=== PATIENT | female | born 1950 | race American Indian/Alaskan Native ===

== ENCOUNTER 2018-04-23 05:24 | Emergency (ER) | payer OTHER, SELFPAY ==
[2018-04-23 05:33] VITALS: BP 199/97; PULSE 91; RESP 18; TEMP 36.2; O2SAT 99; BMI 26.4
--- NOTE | 2018-04-23 05:38 | ED.GENADULT ---
HPI - General Adult General Chief complaint: Upper Respiratory Symptoms Stated complaint: throat sore can't swallow Time Seen by Provider: 04/23/18 05:27 Source: patient Mode of arrival: ambulatory Limitations: no limitations History of Present Illness HPI narrative: 68-year-old female comes to the emergency with complaint of sore throat. Patient states it woke her up this evening around midnight. Patient states she took some Aleve but has not been helpful. It is on the right side of her throat. Patient states it feels swollen but just on the right side. She has not had fevers. She has pain with swallowing but has been swallowing her secretions. Patient states her voice seems a little bit weaker. She is not having any difficulty breathing or cough. She has not had any sick contacts. She has similar symptoms once before but she states that was not treated. She has not had any dental issues that she is aware of. She denies chest pain or shortness of breath no nausea, no vomiting, no new GI or urinary symptoms. She takes losartan as well as atorvastatin. She has had a cholecystectomy. Denies tob. Related Data Home Medications Medication Instructions Recorded Confirmed cholecalciferol (vitamin D3) 2,000 iu PO QDAY #0 06/14/17 [Vitamin D3] multivitamin [Multiple Vitamins] 1 tab PO QDAY #0 06/14/17 Previous Rx's Medication Instructions Recorded aspirin 81 mg PO [facility] #30 06/16/17 atorvastatin [Lipitor] 20 mg PO HS #30 06/16/17 losartan 50 mg PO QDAY #30 tab 06/16/17 amoxicillin 500 mg PO TID #30 cap 04/23/18 prednisone 40 mg PO DAILY 3 Days tab 04/23/18 Allergies Allergy/AdvReac Type Severity Reaction Status Date / Time CATS Allergy Unknown Uncoded 09/13/17 11:50 Review of Systems Review of Systems All systems reviewed & are unremarkable except as noted in HPI and below Constitutional Denies chills, Denies fever(s) and Denies headache(s) Eyes Denies change in vision ENT Ears, Nose, Mouth, and Throat: Reports dental pain, Denies dysphagia, Denies ear discharge, Reports otalgia, Denies headache(s), Reports hoarseness, Denies lip swelling, Denies nasal congestion, Denies nasal discharge, Denies neck pain, Denies nose pain, Denies post nasal drip, Denies sinus pressure, Reports sore throat, Reports throat swelling (right side) and Denies tongue swelling Cardiovascular Denies chest pain and Denies dyspnea Respiratory Denies dyspnea Gastrointestinal Gastrointestinal: Denies abdominal pain, Denies dysphagia, Denies diarrhea, Denies nausea and Denies vomiting Genitourinary Denies urinary frequency Musculoskeletal Denies neck pain Integumentary/Breasts Denies rash Neurologic Denies headache(s) Allergic/Immunologic Denies lip swelling, Reports throat swelling (right side) and Denies tongue swelling PFSH Medical History Dyslipidemia (Acute) Hypertension (Acute) Surgical History Hx of cholecystectomy (Acute) Exam Narrative Exam Narrative: GEN: thin elderly female, alert and oriented x 3, patient appears to be in mild distress. HEENT: Atraumatic, pupils are equal round reactive to light, extraocular movements are intact, nares are clear, TMs are clear with no fluid, there is no conjunctival pallor. Throat is clear without any exudates, + erythema, no tonsillar enlargement or uvular deviation, no swelling or peritonsillar abscess, patient has right cervical lymphadneopathy, movable, tender, non-fluctuent. Full ROM of neck. HEART: Regular rate and rhythm without murmur, clicks, rubs. LUNGS:Lungs clear to auscultation, no wheezes, rales, crackles, chest moves symmetrically ABD:bowel sounds normal, soft, non-tender, no guarding, rebound, rigidity, no masses noted, no hepatosplenomegaly MSCL: Non-tender, full range of motion, normal gait NEURO:CN 2-12 intact, sensation normal Initial Vital Signs Initial Vital Signs: Vital Signs Temperature 97.2 F L 04/23/18 05:33 Pulse Rate 91 H 04/23/18 05:33 Respiratory Rate 18 04/23/18 05:33 Blood Pressure 199/97 H 04/23/18 05:33 Pulse Oximetry 99 04/23/18 05:33 Course Orders Ordered: Discontinued Medications Acetaminophen (Tylenol) 650 mg PO NOW ONE Stop: 04/23/18 06:42 Last Admin: 04/23/18 07:03 Dose: 650 mg Amoxicillin (Trimox) 500 mg PO NOW ONE Stop: 04/23/18 06:56 Last Admin: 04/23/18 07:03 Dose: 500 mg Dexamethasone (Decadron) 10 mg IV NOW ONE Stop: 04/23/18 05:36 Last Admin: 04/23/18 06:16 Dose: 10 mg Sodium Chloride (Normal Saline 0.9%) 1,000 mls @ 1,000 mls/hr IV BOLUS ONE Stop: 04/23/18 06:34 Last Infusion: 04/23/18 07:37 Dose: 0 mls/hr Admin: 04/23/18 06:16 Dose: 1,000 mls/hr Ketorolac Tromethamine (Toradol) 15 mg IV NOW ONE Stop: 04/23/18 06:15 Last Admin: 04/23/18 06:16 Dose: 15 mg Vital Signs - 8 hr 04/23/18 05:33 Temperature 97.2 F L Pulse Rate 91 H Respiratory Rate 18 Blood Pressure 199/97 H Pulse Oximetry 99 Medical Decision Making Lab Data Result diagrams: 04/23/18 06:00 04/23/18 06:00 Lab Results 04/23/18 04/23/18 04/23/18 Range/Units 05:56 06:00 06:00 WBC 11.7 H (4.5-11.0) X10^3/uL RBC 4.73 (4.0-5.2) X10^6/uL Hgb 13.2 (12.0-16.0) g/dL Hct 39.8 (36-46) % MCV 84.1 (80-100) fL MCH 27.9 (26-34) PG MCHC 33.2 (30-36) % RDW 13.3 (11.6-14.8) % Plt Count 242 (150-400) X10^3/uL Neut % (Auto) 78.2 H (50-75) % Lymph % (Auto) 13.6 L (25-40) % Mckinley % (Auto) 4.9 (3-14) % Eos % (Auto) 2.8 (2-4) % Baso % (Auto) 0.5 (0-2) % Neut # (Auto) 9200 H (2758-6726) /uL Sodium 142 (137-145) mmol/L Potassium 3.5 (3.4-5.1) mmol/L Chloride 104 (98-107) mmol/L Carbon Dioxide 29 (22-32) mmol/L BUN 15 (7-17) mg/dL Creatinine 0.70 (0.52-1.04) mg/dL Estimated GFR > 60.0 (>60) mL/min BUN/Creatinine Ratio 21.4 (6-22) Glucose 101 (80-110) mg/dL Calcium 9.1 (8.4-10.2) mg/dL Group A Strep (PCR) Negative MDM Narrative Medical decision making narrative: Recheck after medication, patient is feeling better but still uncomfortable. Does not want narcotics will try tylenol. WBC slightly elevated, discussed treating with amoxicilin and steroids and recheck with pcp. Patient pain is more right neck although no peritonsillar abscess, no fullness or swelling of neck noted, full ROM, no fevers, no neurologic changes, discussed possibility of retropharyngeal abscess, vascular cause or other cause of neck/throat pain and imaging may be helpful but suspicion is lower. Patient prefers treatment at this time and return if worsening or new changes. Discharge Plan Departure Patient Disposition: Home Clinical Impression: Sore throat Discharge Date/Time: 04/23/18 07:37 Interventions: ED Discharge Assessment Last Done: 04/23/18 07:35 Instructions: Sore Throat Activity Restrictions/Additional Instructions: Follow up with your primary care physician in 2-3 days if symptoms are not resolving. Return to ER for fevers greater than 100.4F, increasing pain, swelling, voice changes, increasing swelling of throat, unable to swallow secretions or saliva/spit, stridor or audible high pitched wheezing, passing out, severe headaches, new weakness, numbness, vision or speech changes. Take antibiotics as prescribed. Take prednisone until gone. Take tylenol 1000mg every 8 hours as needed for pain. You may also take ibuprofen 600mg every 6 hours for pain. Prescriptions: New amoxicillin 500 mg capsule 500 mg PO TID Qty: 30 RF: 0 prednisone 20 mg tablet 40 mg PO DAILY 3 Days RF: 0 No Action multivitamin [Multiple Vitamins] 1 EACH tablet 1 tab PO QDAY Qty: 0 RF: 0 cholecalciferol (vitamin D3) [Vitamin D3] 2,000 UNIT capsule 2,000 iu PO QDAY Qty: 0 RF: 0 atorvastatin [Lipitor] 20 MG tablet 20 mg PO HS Qty: 30 RF: 0 aspirin 81 MG tablet,delayed release (DR/EC) 81 mg PO [facility] Qty: 30 RF: 0 losartan 50 MG tablet 50 mg PO QDAY Qty: 30 RF: 0
[2018-04-23] MEDS: KETOROLAC 60 MG/2 ML VIAL 15 MG IV (06:16)
[2018-04-23] MEDS: SODIUM CHLORIDE 0.9% 1,000 ML 1000 ML IV (06:16)
[2018-04-23] MEDS: DEXAMETHASONE 10 MG/ML VIAL IV (06:16)
[2018-04-23 06:18] LABS: Add Manual Diff / Slide Review NO; Basophils Percent Auto 0.5 % (0-2); Eosinophils Percent Auto 2.8 % (2-4); Hematocrit 39.8 % (36-46); Hemoglobin 13.2 g/dL (12.0-16.0); Lymphocytes Percent Auto 13.6 % (25-40); Mean Corpuscular HGB Conc 33.2 % (30-36); Mean Corpuscular Hemoglobin 27.9 PG (26-34); Mean Corpuscular Volume 84.1 fL (80-100); Monocytes Percent Auto 4.9 % (3-14); Neutrophils Absolute Auto 9200 /uL (3000-5900); Neutrophils Percent Auto 78.2 % (50-75); Platelet Count 242 X10^3/uL (150-400); Red Blood Cell Count 4.73 X10^6/uL (4.0-5.2); Red Cell Distribution Width 13.3 % (11.6-14.8); White Blood Cell Count 11.7 X10^3/uL (4.5-11.0)
[2018-04-23 06:33] LABS: Strep Grp A by PCR Rapid Negative
[2018-04-23 06:49] LABS: BUN Creatinine Ratio 21.4 (6-22); Blood Urea Nitrogen 15 mg/dL (7-17); Calcium 9.1 mg/dL (8.4-10.2); Carbon Dioxide 29 mmol/L (22-32); Chloride 104 mmol/L (98-107); Estimated Glomerular Filt Rate > 60.0 mL/min (>60); Glucose 101 mg/dL (80-110); HEMOLYSIS < 15 (0-50); Potassium 3.5 mmol/L (3.4-5.1); Sodium 142 mmol/L (137-145)
[2018-04-23 07:00] VITALS: BP 168/67; PULSE 72; RESP 16; O2SAT 99
[2018-04-23] MEDS: AMOXICILLIN 250 MG CAPSULE 500 MG PO (07:03)
[2018-04-23] MEDS: ACETAMINOPHEN 325 MG TABLET 650 MG PO (07:03)
--- NOTE | 2018-04-23 07:16 | PC.NURSE ---
pt coughed after taking tylenol, said she has trouble swallowing after her stroke in June, sat her up and gave her some applesauce. she was able to swallow the abx with it poured into applesauce.
== END 2018-04-23 07:37 | disposition home or self-care (01) ==
PROVIDERS: Emergency Provider Emergency Medicine; Family Provider Family Medicine; PCP Family Medicine
DX: J02.9 Acute pharyngitis, unspecified (principal)
CPT/HCPCS: 36591; 80048; 85025; 87651; 96361; 96374; 96375; 99283; 99284; J1100; J1885

== ENCOUNTER → 2018-05-18 09:01 | Outpatient (CLI) | payer OTHER, SELFPAY ==
--- NOTE | 2018-05-18 | DI.US.S_ITS ---
PROCEDURE: US RENAL COMPLETE INDICATIONS: RESISTANT HYPERTENSION TECHNIQUE: Real-time scanning was performed of the kidneys and bladder, with image documentation. COMPARISON: None. FINDINGS: Kidneys: Kidneys are normal in size. Right kidney measures 10 cm long; left kidney measures 9.6 cm long. Right renal cortical thickness is 1.0 cm; left renal cortical thickness is 1.1 cm. Renal cortical echotexture is normal. No hydronephrosis or nephrolithiasis. No suspicious solid mass lesions. Bladder: Pre-void bladder volume is 29 mL. Post-void residual is not assessed. Pre-void images demonstrate no intraluminal masses or stones. On pre-void images, neither ureteral jets are noted with color Doppler interrogation. (Of note, ureteral jets may not be detectable in up to 25% of cases due to insufficient differences in specific gravity between ureteral and bladder urine). Miscellaneous: No free pelvic fluid. Right posterior liver cyst. IMPRESSION: 1. Normal kidneys. 2. Incidental finding of 4.5 cm posterior right hepatic lobe cyst. Dictated by: Jorden Freire [facility] Interpreted: Alexander Mancera MD on 05/18/2018 at 10:38 Approved by: Alexander Mancera M.D. on 05/18/2018 at 11:08
== END ==
PROVIDERS: Family Provider Family Medicine; PCP Family Medicine; Visit Provider Physician Assistant
DX: I10 Essential (primary) hypertension (principal); K76.89 Other specified diseases of liver
CPT/HCPCS: 76770

== ENCOUNTER → 2018-07-20 13:13 | Outpatient (CLI) | payer OTHER, SELFPAY ==
--- NOTE | 2018-07-20 | DI.MG.S_ITS ---
BILATERAL DIGITAL SCREENING MAMMOGRAM 3D/2D WITH CAD: 07/20/2018 CLINICAL: Routine screening. Family history of breast cancer. Comparison is made to exams dated: 06/07/2016 mammogram, 12/03/2015 mammogram, and 11/06/2014 mammogram - [facility]. There are scattered fibroglandular elements in both breasts. Current study was also evaluated with a Computer Aided Detection (CAD) system. There is an oval low density asymmetry with an obscured, indistinct, and circumscribed margin in the right breast at 10 o'clock anterior depth. There is 0.6 cm oval equal density asymmetry with an obscured and circumscribed margin in the left breast middle depth lateral region seen on the craniocaudal view only. No other significant masses or calcifications are seen in either breast. IMPRESSION: INCOMPLETE: NEEDS ADDITIONAL IMAGING EVALUATION The oval low density asymmetry in the right breast at 10 o'clock anterior depth is indeterminate. Mediolateral and spot compression views as well as additional views with possible ultrasound are recommended. The 0.6 cm oval equal density asymmetry in the left breast middle depth lateral region seen on the craniocaudal view only is indeterminate. Mediolateral and spot compression views as well as additional views with possible ultrasound are recommended. This exam was interpreted at Station ID: [id number]. NOTE: For mammograms, a report in lay terms will be sent to the patient. Approximately 15% of breast malignancies will not be visualized mammographically. In the management of a palpable breast mass, a negative mammogram must not discourage biopsy of a clinically suspicious lesion. Electronically Signed By: Ilya marquez/ranjit:07/20/2018 14:26:21 letter sent: Additional Imaging Needed ACR BI-RADS Category 0: Incomplete 3340F
== END ==
PROVIDERS: PCP Family Medicine; Visit Provider Family Medicine
DX: Z12.31 Encounter for screening mammogram for malignant neoplasm of breast (principal); Z80.3 Family history of malignant neoplasm of breast
CPT/HCPCS: 77063; 77067

== ENCOUNTER → 2018-08-03 08:44 | Outpatient (CLI) | payer OTHER, SELFPAY ==
--- NOTE | 2018-08-03 | DI.US.S_ITS ---
ULTRASOUND OF LEFT BREAST: 08/03/2018 CLINICAL: Patient returns today to evaluate an architectural distortion in the left breast. Comparison is made to exams dated: 08/03/2018 mammogram, 07/20/2018 mammogram, 06/07/2016 ultrasound, and 06/07/2016 mammogram - [facility]. Real-time ultrasound of the left breast was performed on the areas of interest. Madden scale images of the real-time examination were reviewed. IMPRESSION: NEGATIVE There is no sonographic evidence of malignancy. There is no sonographic abnormality seen in the left breast to correspond with the questionable architectural distortion in the lower outer quadrant. This region likely represents normal fibroglandular tissue and has a similar appearance when compared with the patient's previous 2D mammogram exams. Return to annual mammogram screening schedule is recommended. This exam was interpreted at Station ID: [id number]. Electronically Signed By: Carline García M.D. lk/:08/03/2018 10:05:31 letter sent: Normal Exam Ultrasound BI-RADS: 1 Negative
--- NOTE | 2018-08-03 | DI.MG.S_ITS ---
BILATERAL DIGITAL DIAGNOSTIC MAMMOGRAM 3D/2D WITH ADDITIONAL VIEWS: 08/03/2018 Comparison is made to exams dated: 07/20/2018 mammogram, 06/07/2016 mammogram, and 12/03/2015 mammogram - [facility]. There are scattered fibroglandular elements in both breasts. The low density asymmetry in the right breast at 10 o'clock anterior depth is not seen in additional views. The asymmetry in the left breast middle depth lateral region seen on the craniocaudal view only is no longer seen. However, there is possible architectural distortion in the lower outer quadrant seen on additional views. No other significant masses or calcifications are seen in either breast. IMPRESSION: INCOMPLETE: NEEDS ADDITIONAL IMAGING EVALUATION A targeted ultrasound of the left breast is recommended to evaluate for possible architectual distortion and will be performed immediately following this exam. This exam was interpreted at Station ID: [id number]. NOTE: For mammograms, a report in lay terms will be sent to the patient. Approximately 15% of breast malignancies will not be visualized mammographically. In the management of a palpable breast mass, a negative mammogram must not discourage biopsy of a clinically suspicious lesion. Electronically Signed By: Carline García M.D. lk/:08/03/2018 10:01:28 ACR BI-RADS Category 0: Incomplete 3340F
== END ==
PROVIDERS: PCP Family Medicine; Visit Provider Family Medicine
DX: R92.8 Other abnormal and inconclusive findings on diagnostic imaging of breast (principal); N64.89 Other specified disorders of breast
CPT/HCPCS: 76642; 77066; G0279

== ENCOUNTER 2018-11-30 11:58 | Day surgery (SDC) | payer OTHER, SELFPAY ==
[2018-11-30] VITALS (8 sets, daily range): BP systolic 88–144; BP diastolic 53–72; PULSE 75–85; RESP 15–18; TEMP 36–36.6; O2SAT 96–98; BMI 25.4
--- NOTE | 2018-11-30 | PATH_ITS ---
[facility] Accession Number: [id number] . 01 Material submitted: . cecum - CECAL POLYPS . 02 Diagnosis: Cecum, Polyps, Biopsies: Tubular adenoma in three of four fragments. V/12/03/2018 . 02 Electronically signed: . Susana Boykin MD, Pathologist NPI- [id number] . 01 Gross description: . CECAL POLYPS: Received in formalin are 4 fragment(s) of guerrero, soft tissue measuring 0.2 x 0.1 x 0.1 cm to 0.4 x 0.3 x 0.2 cm which is entirely submitted and submitted entirely in 1 cassette(s) /DMC /DMC . 02 Pathologist provided ICD-10: D12.0 . 02 CPT . 371924 Performed at: 01 [facility] [address] [id number] MD Ilya Lr MD Phone: [phone] Performed at: 02 [facility] [place] [address] [address] [place], [place] [id number] MD Susana Boykin MD Phone: [phone]
[2018-11-30] MEDS: SODIUM CHLORIDE 0.9% 1,000 ML 200 ML IV (12:41)
--- NOTE | 2018-11-30 13:10 | PM.HP.1 ---
History of Present Illness Date Patient Seen: 11/30/18 Time Patient Seen: 13:10 Chief complaint: [id number] Narrative: Patient is here for screening colonoscopy most recent colonoscopy 11 years ago she is asymptomatic Patient History Medical History Dyslipidemia (Acute) Hypertension (Acute) Surgical History Hx of cholecystectomy (Acute) Social History household members: spouse Family & Social History Social History: household members spouse Meds Home Medications Medication Instructions Recorded Confirmed Type cholecalciferol (vitamin D3) 2,000 iu PO QDAY #0 06/14/17 11/30/18 History [Vitamin D3] multivitamin [Multiple Vitamins] 1 tab PO QDAY #0 06/14/17 11/30/18 History aspirin 81 mg PO [facility] #30 06/16/17 11/30/18 Rx atorvastatin [Lipitor] 20 mg PO HS #30 06/16/17 11/30/18 Rx losartan 50 mg PO QDAY #30 tab 06/16/17 11/30/18 Rx amlodipine 2.5 mg PO DAILY 11/30/18 11/30/18 History fexofenadine [Sharri Allergy] 60 mg PO BID 11/30/18 11/30/18 History hydrochlorothiazide 25 mg PO DAILY 11/30/18 11/30/18 History metoprolol tartrate 25 mg PO DAILY 11/30/18 11/30/18 History Allergies Allergy/AdvReac Type Severity Reaction Status Date / Time CATS Allergy Unknown Uncoded 11/30/18 12:31 Review of Systems Review of Systems All systems reviewed & are unremarkable except as noted in HPI and below Exam Vital Signs (past 8 hours): - 11/30/18 12:22 Temperature 97.3 F L Pulse Rate 77 Respiratory Rate 16 Blood Pressure 144/72 H Pulse Oximetry 96 Oxygen Delivery Method Room Air Narrative Exam Narrative: Patient is alert and oriented with no complaints Lungs are clear with no rales or wheezes Heart regular rhythm no murmur Abdomen soft organomegaly Rectal will be done at time of colonoscopy Assessment & Plan Assessment & Plan narrative: Patient is here for screening colonoscopy asymptomatic has no questions
[2018-11-30] MEDS: fentaNYL 250 MCG/5 ML INJ IV (13:20)
[2018-11-30] MEDS: MIDAZOLAM 5 MG/5 ML VIAL IV (13:21)
--- NOTE | 2018-11-30 13:52 | PM.OP.ENDO ---
Operative Date/Time/Diagnoses Date of procedure: 11/30/18 Time of procedure: 13:52 Pre-op diagnosis: Screening colonoscopy Post-op diagnosis: other (Polyp found in the cecum sessile and removed with cold forceps) Procedure & Clinicians Study performed: Colonoscopy and polypectomy of cecal polyp Same procedure as scheduled: Yes Indications: Screening Surgeon: Warren Hardy Procedure Notes SCOAP/Timeout: Was done Procedure in detail: Procedure the patient was properly identified during surgical pause given a total of 3 mg of Versed and 100 micro g of fentanyl throughout the procedure which was well-tolerated the flexible fiberoptic colonoscope inserted transanally to the cecum in the cecum there was a 1 cm lobulated sessile polyp which I removed with the cold forceps and sent for permanent histology. Patient also was found to have severe sigmoid diverticulosis. I saw what could have been a small [address] in with the scope but I could not identified on the way back out. This appeared to be around 20 cm in the sigmoid but once again I could not identify it with multiple attempts at advancing the scope at that segment and slowly with drawing I could not find that suspicious area. Procedures very well tolerated. Scope withdrawal time: 20 Sedation minutes: 32 Findings: polyp Specimen(s): other (Cecal polyp was sent) Complications: none Impression: 1 cm lobulated polyp in the cecum. Recommendations: Colonscopy in 3 years Disposition: PACU
--- NOTE | 2018-11-30 15:16 | SUR.PHASEII ---
Patient's family has been called multiple times and no one has come to get her. Now her has arrived.
== END 2018-11-30 15:15 | disposition home or self-care (01) ==
PROVIDERS: PCP Physician Assistant; Visit Provider Surgery
PROC: 0DJD8ZZ Inspection of Lower Intestinal Tract, Via Natural or Artificial Opening Endoscopic (ICD-10-PCS; CPT 45378; principal; 2018-11-30 13:30)
DX: Z12.11 Encounter for screening for malignant neoplasm of colon (principal); D12.0 Benign neoplasm of cecum; K57.30 Diverticulosis of large intestine without perforation or abscess without bleeding; I10 Essential (primary) hypertension; E78.5 Hyperlipidemia, unspecified
CPT/HCPCS: 45380; 99152; 99153; J2250; J3010

== ENCOUNTER → 2020-05-18 14:06 | Outpatient (CLI) | payer OTHER, SELFPAY ==
--- NOTE | 2020-05-18 | DI.RAD.S_ITS ---
PROCEDURE: XR ELBOW RT MIN 3V INDICATIONS: RIGHT ELBOW INJURY, PAIN TECHNIQUE: 3 views of the elbow were acquired. COMPARISON: None. FINDINGS: Bones: No fractures or dislocations. No suspicious bony lesions. Soft tissues: Marked soft tissue swelling about the olecranon. No definite joint effusion. IMPRESSION: Soft tissue swelling in the area of the olecranon. No fracture. If the patient's symptoms do not improve recommend followup radiographs in 10 days to assess for healing sclerosis/occult injury. Dictated by: Denver Choe M.D. on 05/18/2020 at 15:42 Approved by: Denver Choe M.D. on 05/18/2020 at 15:43
== END ==
PROVIDERS: PCP Physician Assistant; Referring Provider Physician Assistant; Visit Provider Physician Assistant
DX: M25.521 Pain in right elbow (principal); S59.901A Unspecified injury of right elbow, initial encounter; M79.89 Other specified soft tissue disorders; X58.XXXA Exposure to other specified factors, initial encounter
CPT/HCPCS: 73080

== ENCOUNTER → 2020-07-11 15:43 | Outpatient (CLI) | payer OTHER, SELFPAY ==
--- NOTE | 2020-07-11 | DI.MG.S_ITS ---
BILATERAL DIGITAL SCREENING MAMMOGRAM 3D/2D WITH CAD: 07/11/2020 CLINICAL: Routine screening. Family history of breast cancer. Comparison is made to exams dated: 07/20/2018 mammogram, 06/07/2016 mammogram, and 12/03/2015 mammogram - [facility]. There are scattered fibroglandular elements in both breasts. Current study was also evaluated with a Computer Aided Detection (CAD) system. No significant masses, calcifications, or other findings are seen in either breast. There has been no significant interval change. IMPRESSION: NEGATIVE There is no mammographic evidence of malignancy. A 1 year screening mammogram is recommended. This exam was interpreted at Station ID: [id number]. NOTE: For mammograms, a report in lay terms will be sent to the patient. Approximately 15% of breast malignancies will not be visualized mammographically. In the management of a palpable breast mass, a negative mammogram must not discourage biopsy of a clinically suspicious lesion. Electronically Signed By: Christian pérze/ranjit:07/13/2020 08:41:07 letter sent: Normal Exam ACR BI-RADS Category 1: Negative [id number]
== END ==
PROVIDERS: PCP Physician Assistant; Referring Provider Physician Assistant; Visit Provider Physician Assistant
DX: Z12.31 Encounter for screening mammogram for malignant neoplasm of breast (principal); Z80.3 Family history of malignant neoplasm of breast
CPT/HCPCS: 77063; 77067

== ENCOUNTER → 2022-02-02 11:06 | Outpatient (CLI) | payer OTHER, SELFPAY ==
[2022-02-02 13:24] LABS: COVID19 -Nasal RAPID Negative (Negative)
== END ==
PROVIDERS: PCP Physician Assistant; Visit Provider Surgery
DX: Z01.812 Encounter for preprocedural laboratory examination (principal); Z20.822 Contact with and (suspected) exposure to COVID-19
CPT/HCPCS: 87635; C9803

== ENCOUNTER 2022-02-03 10:57 | Day surgery (SDC) | payer OTHER, SELFPAY ==
--- NOTE | 2022-02-03 | PATH_ITS ---
[facility] Accession Number: [id number] . 01 Material submitted: . colon - SIGMOID COLON POLYP . 01 Clinical history: . SCREENING COLONOSCOPY . 01 Diagnosis: Sigmoid Colon, Polyp, Biopsy: Tubular adenoma. MRV 02/08/2022 1228 Local . 01 Electronically signed: . Susana Boykin MD, Pathologist NPI- [id number] . 01 Gross description: . SIGMOID COLON POLYP: Received in formalin is 1 fragment(s) of guerrero, soft tissue measuring 0.3 x 0.2 x 0.2 cm submitted entirely in 1 cassette(s) /CPE 02/04/2022 0833 Local . 01 Pathologist provided ICD-10: D12.5 . 01 CPT . 691188 Specimen Comment: A courtesy copy of this report has been sent to [phone] Performed at: 01 [facility] [address] [place] [address], [place], [place] [id number] MD Ilya Lr MD Phone: [phone]
[2022-02-03 11:12] VITALS: BP 155/90; PULSE 94; RESP 16; TEMP 36.2; O2SAT 95; BMI 27.3
[2022-02-03] MEDS: LACTATED RINGERS 1,000 ML 42 ML IV (11:27)
--- NOTE | 2022-02-03 13:19 | PM.HP.1 ---
History of Present Illness History of Present Illness Date Patient Seen: 02/03/22 Time Patient Seen: 13:19 Chief complaint: SCREENING COLONOSCOPY Narrative: Maria Alejandra is a 72-year-old woman here for colonoscopy. Her last 1 was in [address] Heladio marshall and 2 small polyps were removed from the cecum. She would another colonoscopy several years prior to that with no polyps. She has no known family history of colon cancer. Patient History Medical History (Updated 02/03/22 @ 13:20 by Juan Hawkins MD) Dyslipidemia Hypertension Surgical History Hx of cholecystectomy Family & Social History Social History: household members spouse Tobacco & Substance use: Smoking Status Never smoker alcohol intake never Substance Use Type does not use Meds Home Medications and Allergies Home Medications Medication Instructions Recorded Confirmed Type cholecalciferol (vitamin D3) 50 2,000 iu PO QDAY ##0 06/14/17 11/30/18 History mcg (2,000 unit) capsule (Vitamin D3) multivitamin (Multiple Vitamins 1 tab PO QDAY ##0 06/14/17 11/30/18 History tablet) aspirin 81 mg tablet,delayed 81 mg [place] [facility] [place]30 06/16/17 11/30/18 Rx release atorvastatin 20 mg tablet (Lipitor) 20 mg PO HS ##30 06/16/17 11/30/18 Rx losartan 50 mg tablet 50 mg PO QDAY #30 tabs 06/16/17 11/30/18 Rx amlodipine 2.5 mg tablet 2.5 mg PO DAILY 11/30/18 11/30/18 History fexofenadine 60 mg tablet (Sharri 60 mg PO BID 11/30/18 11/30/18 History Allergy) hydrochlorothiazide 25 mg tablet 25 mg PO DAILY 11/30/18 11/30/18 History metoprolol tartrate 25 mg tablet 25 mg PO DAILY 11/30/18 11/30/18 History sodium sul 1.479 gram-potas ch See Rx Instructions PO PER PKG DIR 01/19/22 Rx 0.188 gram-magnes sul 0.225 gram #24 tabs tablet (Sutab) Allergies Allergy/AdvReac Type Severity Reaction Status Date / Time CATS Allergy Unknown Uncoded 02/03/22 11:11 Exam Vital Signs (past 8 hours): - 02/03/22 11:12 Temperature 97.2 F L Pulse Rate 94 H Respiratory Rate 16 Blood Pressure 155/90 H Pulse Oximetry 95 Oxygen Delivery Method Room Air Oxygen Delivery Method Room Air Const General: No acute distress Resp Effort & Inspection: normal respiratory effort Assessment & Plan Assessment and plan (1) History of colon polyps: Status: Acute Plan 72-year-old woman with history of colon polyps with her last colonoscopy 4 years ago. We reviewed the risks and benefits of colonoscopy and she would like to proceed. Time Spent With Patient Critical Care time: I spent a total of [] minutes of critical care time on this patient's care today; this time is exclusive of procedural time.
[2022-02-03] MEDS: fentaNYL 100 MCG/2 ML INJ 125 MCG IV (13:37)
[2022-02-03] MEDS: MIDAZOLAM 5 MG/5 ML VIAL IV (13:37)
--- NOTE | 2022-02-03 13:53 | PM.OP.COLON ---
Operative Date/Time/Diagnoses Date of procedure: 02/03/22 Time of procedure: 13:54 Pre-op diagnosis: Colon cancer screening Post-op diagnosis: same Procedure & Clinicians Study performed: Colonoscopy Same procedure as scheduled: Yes Surgeon: Juan Hawkins Procedure Notes Procedure in detail: Surgeon: Juan Hawkins MD Procedure: The patient was brought to the endoscopy suite, placed in left lateral decubitus position. The patient was connected to monitoring devices. A time-out was performed. Sedation was administered. Once the patient was adequately sedated, a digital rectal exam was performed and was normal. The scope was then inserted and advanced to the cecum where the appendiceal orifice was identified and photographed. The scope was then slowly withdrawn over greater than 6 minutes. The mucosa was thoroughly inspected. There was a 4 mm polyp in the sigmoid colon removed with a cold snare. There were some scattered diverticula in the sigmoid colon. The scope was retroflexed in the rectum. There were some mild internal hemorrhoids but no other abnormalities were seen. The scope was straightened and removed. The patient was awakened and brought to recovery. Versed: 5 mg Fentanyl: 125 mcg EBL: 5 mL Findings: 5 mm sigmoid colon polyp and scattered sigmoid diverticulosis Scope withdrawal time: 11 Sedation minutes: 23 Post-procedure Disposition: PACU
[2022-02-03 13:56] VITALS: BP 106/62; PULSE 76; RESP 20; TEMP 36.6
[2022-02-03 14:01] VITALS: BP 114/69; PULSE 77; RESP 19; O2SAT 99
[2022-02-03 14:05] VITALS: BP 115/64; PULSE 76; RESP 18; TEMP 36.4; O2SAT 100
[2022-02-03 14:15] VITALS: BP 126/63; PULSE 77; RESP 16; TEMP 36.6; O2SAT 98
[2022-02-03 14:50] VITALS: BP 128/70; PULSE 76; RESP 16; TEMP 36.6; O2SAT 97
== END 2022-02-03 14:40 | disposition home or self-care (01) ==
PROVIDERS: PCP Physician Assistant; Referring Provider Surgery; Visit Provider Surgery
PROC: 0DJD8ZZ Inspection of Lower Intestinal Tract, Via Natural or Artificial Opening Endoscopic (ICD-10-PCS; CPT 45378; principal; 2022-02-03 12:15)
DX: Z12.11 Encounter for screening for malignant neoplasm of colon (principal); Z86.010 Personal history of colon polyps; K57.30 Diverticulosis of large intestine without perforation or abscess without bleeding; K64.8 Other hemorrhoids; I10 Essential (primary) hypertension; E78.5 Hyperlipidemia, unspecified; D12.5 Benign neoplasm of sigmoid colon
CPT/HCPCS: 45385; 99152; J2250; J3010

== ENCOUNTER 2022-07-19 19:34 | Observation (INO) | payer OTHER, SELFPAY ==
[2022-07-19] VITALS (12 sets, daily range): BP systolic 133–181; BP diastolic 62–82; PULSE 94–104; RESP 14–25; TEMP 36.9–37.2; O2SAT 93–98; BMI 29.0
--- NOTE | 2022-07-19 19:45 | DI.RAD.S_ITS ---
PROCEDURE: XR CHEST 1V INDICATIONS: chest pain TECHNIQUE: One view of the chest was acquired. COMPARISON: None. FINDINGS: Surgical changes and devices: None. Lungs and pleura: Low lung volumes left basilar horizontal opacity. Lungs are otherwise clear. No pleural effusions or pneumothorax. Mediastinum: Mediastinal contours appear normal. Heart size is normal. Bones and chest wall: No suspicious bony lesions. Overlying soft tissues appear unremarkable. IMPRESSION: 1. Low lung volumes and probable left base atelectasis. 2. No other acute cardiopulmonary disease. Dictated by: Anabell Garcia M.D. on 07/19/2022 at 20:08 Approved by: Anabell Garcia M.D. on 07/19/2022 at 20:09
[2022-07-19 19:50] LABS: Add Manual Diff / Slide Review NO; Basophils Absolute Auto 0 /uL (0-100); Basophils Percent Auto 0.4 % (0-2); Eosinophils Absolute Auto 200 /uL (0-450); Eosinophils Percent Auto 1.9 % (2-4); Hematocrit 36.4 % (36-46); Hemoglobin 12.5 g/dL (12.0-16.0); Lymphocytes Absolute Auto 1900 /uL (1100-4500); Lymphocytes Percent Auto 18.6 % (25-40); Mean Corpuscular HGB Conc 34.2 % (30-36); Mean Corpuscular Volume 78.9 fL (80-100); Monocytes Absolute Auto 700 /uL (0-900); Monocytes Percent Auto 7.2 % (3-14); Neutrophils Absolute Auto 7400 /uL (1500-7000); Neutrophils Percent Auto 71.9 % (50-75); Platelet Count 220 X10^3/uL (150-400); Red Blood Cell Count 4.62 X10^6/uL (4.0-5.2); White Blood Cell Count 10.3 X10^3/uL (4.5-11.0)
--- NOTE | 2022-07-19 19:55 | ED.CHESTPAIN ---
HPI - Chest Pain General Chief Complaint: Chest Pain Stated Complaint: L chest pain Time Seen by Provider: 07/19/22 19:45 Source: patient and EMS Mode of arrival: EMS Limitations: no limitations History of Present Illness HPI narrative: 72-year-old female. Has a history high blood pressure. Has also has a history of a stroke with some mobility issues and also some ?communication ?issues who is here for evaluation of left-sided chest discomfort that radiated down her left arm. States that it started earlier this evening. She was getting ready for bed when the symptoms started. She did have some shortness of breath with it. She has not had symptoms like this in the past. She contacted her family who came over to the house and then contacted 911. She did receive aspirin and nitro prior to arrival. She states the nitro caused her symptoms to completely resolve. She is currently asymptomatic. She did not have any sweating at the time. No lower extremity edema. No abdominal pain. Related Data Home Medications Medication Instructions Recorded Confirmed cholecalciferol (vitamin D3) 50 2,000 iu PO QDAY ##0 06/14/17 11/30/18 mcg (2,000 unit) capsule (Vitamin D3) multivitamin (Multiple Vitamins 1 tab PO QDAY ##0 06/14/17 11/30/18 tablet) amlodipine 2.5 mg tablet 2.5 mg PO DAILY 11/30/18 11/30/18 fexofenadine 60 mg tablet (Sharri 60 mg PO BID 11/30/18 11/30/18 Allergy) hydrochlorothiazide 25 mg tablet 25 mg PO DAILY 11/30/18 11/30/18 metoprolol tartrate 25 mg tablet 25 mg PO DAILY 11/30/18 11/30/18 losartan 100 mg tablet 100 mg PO BEDTIME 07/19/22 07/19/22 Previous Rx's Medication Instructions Recorded aspirin 81 mg tablet,delayed 81 mg PO [facility] ##30 06/16/17 release atorvastatin 20 mg tablet (Lipitor) 20 mg PO ##30 06/16/17 losartan 50 mg tablet 50 mg PO QDAY #30 tabs 06/16/17 Allergies Allergy/AdvReac Type Severity Reaction Status Date / Time cat dander Allergy Unknown Verified 07/19/22 19:43 Review of Systems Constitutional Constitutional: Reports system reviewed and no additional complaints, except as documented Cardiovascular Cardiovascular: Reports system reviewed and no additional complaints, except as documented Respiratory Respiratory: Reports system reviewed and no additional complaints, except as documented Gastrointestinal Gastrointestinal: Reports system reviewed and no additional complaints, except as documented Integumentary/Breasts Skin/Breast: Reports system reviewed and no additional complaints, except as documented Neurologic Neurologic: Reports system reviewed and no additional complaints, except as documented Hematologic/Lymphatic On Anticoagulants: No Patient History Medical History Dyslipidemia Hypertension Surgical History Hx of cholecystectomy Social History household members: spouse Smoking Status: Never smoker alcohol intake: never Smoking Status: Never smoker alcohol intake frequency: other Substance Use Type: does not use Exam Initial Vital Signs Initial Vital Signs: Vital Signs Pulse Rate 104 H 07/19/22 19:37 Blood Pressure 177/81 H 07/19/22 19:37 Pulse Oximetry 94 07/19/22 19:37 HENMT Head: normal to inspection and normocephalic Resp Effort & Inspection: normal respiratory effort Auscultation: clear to auscultation bilaterally Cardio Rate: regular rate Rhythm: regular rhythm GI Inspection: normal to inspection Palpation: soft and No tender Skin General: no rashes or lesions noted Neuro General: patient alert, patient awake and moves all extremities Extrem General: normal to inspection and capillary refill normal Psych Appearance: grossly normal and well kempt Scores HEART Score Heart Score history: Moderately Suspicious Heart Score EKG: Normal Heart Score Age: > or = 65 years old Heart Score risk factors: 1-2 risk factors Heart Score troponin: < or = to normal limit Heart Score Total: 4 Course Orders Ordered: ED Orders 07/19/22 19:30 Complete Blood Count AUTO DIFF Stat Comprehensive Metabolic Panel Stat Lipase Stat Magnesium Stat Partial Thromboplastin Time Stat Prothrombin Time INR Stat Troponin & CK Cardiac Panel Stat 07/19/22 19:45 XR chest 1V Stat EKG-12 Lead Stat 07/19/22 20:20 Covid-19 + FLU A/B + RSV - PCR Stat Urine Culture Stat Urine Microscopic Stat 07/19/22 20:36 Troponin & CK Cardiac Panel Stat 07/19/22 21:34 stress [NM jennifer perf SPECT rest & str] Urgent 07/20/22 05:00 Troponin I Routine Vital Signs Vital signs: Vital Signs - 8 hr 07/19/22 19:38 07/19/22 19:37 07/19/22 19:37 Temperature 98.9 F Pulse Rate 95 H 104 H Respiratory Rate 14 Blood Pressure 177/81 H 177/81 H Pulse Oximetry 95 94 Oxygen Delivery Method Room Air 07/19/22 20:00 07/19/22 20:01 07/19/22 20:01 Temperature Pulse Rate 95 H 95 H Respiratory Rate Blood Pressure 181/79 H Pulse Oximetry 97 96 Oxygen Delivery Method 07/19/22 20:25 07/19/22 20:25 07/19/22 20:30 Temperature Pulse Rate 103 H Respiratory Rate 25 H Blood Pressure 164/82 H 140/65 Pulse Oximetry 98 Oxygen Delivery Method 07/19/22 20:30 07/19/22 20:45 07/19/22 20:45 Temperature Pulse Rate 97 H 97 H Respiratory Rate 23 Blood Pressure 140/65 Pulse Oximetry 97 97 Oxygen Delivery Method 07/19/22 21:00 07/19/22 21:00 07/19/22 21:15 Temperature Pulse Rate 97 H Respiratory Rate Blood Pressure 138/64 148/68 H Pulse Oximetry 96 Oxygen Delivery Method 07/19/22 21:15 07/19/22 21:30 07/19/22 21:30 Temperature Pulse Rate 99 H 95 H Respiratory Rate 23 24 Blood Pressure 139/65 Pulse Oximetry 96 96 Oxygen Delivery Method MDM - Chest Pain Lab Data Attestation: I reviewed the patient's lab results. 07/19/22 19:30 07/19/22 19:30 Labs: Lab Results 07/19/22 07/19/22 07/19/22 Range/Units 19:30 19:30 19:30 WBC 10.3 (4.5-11.0) X10^3/uL RBC 4.62 (4.0-5.2) X10^6/uL Hgb 12.5 (12.0-16.0) g/dL Hct 36.4 (36-46) % MCV 78.9 L (80-100) fL MCH 27.0 (26-34) PG MCHC 34.2 (30-36) % RDW 14.0 (11.6-14.8) % Plt Count 220 (150-400) X10^3/uL Neut % (Auto) 71.9 (50-75) % Lymph % (Auto) 18.6 L (25-40) % [place] % (Auto) 7.2 (3-14) % Eos % (Auto) 1.9 L (2-4) % Baso % (Auto) 0.4 (0-2) % Neut # (Auto) 7400 H (5727-6500) /uL Lymph # (Auto) 1900 (0020-7218) /uL [place] # (Auto) 700 (0-900) /uL Eos # (Auto) 200 (0-450) /uL Baso # (Auto) 0 (0-100) /uL PT 13.0 H (10.1-12.7) SECONDS INR 1.1 (0.9-1.3) APTT 33 (26-36) SECONDS Sodium 140 (137-145) mmol/L Potassium 3.3 L (3.4-5.1) mmol/L Chloride 105 (98-107) mmol/L Carbon Dioxide 24 (22-32) mmol/L BUN 15 (7-17) mg/dL Creatinine 0.80 (0.52-1.04) mg/dL Estimated GFR > 60 (>60) mL/min BUN/Creatinine Ratio 18.8 (6-22) Glucose 123 H (80-110) mg/dL Calcium 9.2 (8.4-10.2) mg/dL Magnesium 1.8 (1.6-2.3) mg/dL Total Bilirubin 0.9 (0.2-1.3) mg/dL AST 49 H (14-36) IU/L ALT 54 H (<35) IU/L Alkaline Phosphatase 141 H (38-126) U/L Total Creatine Kinase 62 (30-135) U/L CK-MB (CK-2) TNP CK-MB (CK-2) Rel Index TNP Troponin I < 0.012 (0.01-0.034) ng/mL Total Protein 8.2 (6.3-8.2) g/dL Albumin 4.1 (3.5-5.0) g/dL Globulin 4.1 (1.7-4.1) g/dL Albumin/Globulin Ratio 1.0 (1.0-2.8) Lipase 221 (23-300) U/L Urine RBC (0-5/HPF) Urine WBC (0-5/HPF) Ur Squamous Epith Cells (0-5/HPF) Urine Bacteria (None) SARS-CoV-2 (PCR) (Negative) Influenza A (RT-PCR) (NEGATIVE) Influenza B (RT-PCR) (NEGATIVE) RSV (PCR) (Negative) 07/19/22 07/19/22 07/19/22 Range/Units 20:20 20:20 20:36 WBC (4.5-11.0) X10^3/uL RBC (4.0-5.2) X10^6/uL Hgb (12.0-16.0) g/dL Hct (36-46) % MCV (80-100) fL MCH (26-34) PG MCHC (30-36) % RDW (11.6-14.8) % Plt Count (150-400) X10^3/uL Neut % (Auto) (50-75) % Lymph % (Auto) (25-40) % [place] % (Auto) (3-14) % Eos % (Auto) (2-4) % Baso % (Auto) (0-2) % Neut # (Auto) (9721-7095) /uL Lymph # (Auto) (8211-4766) /uL [place] # (Auto) (0-900) /uL Eos # (Auto) (0-450) /uL Baso # (Auto) (0-100) /uL PT (10.1-12.7) SECONDS INR (0.9-1.3) APTT (26-36) SECONDS Sodium (137-145) mmol/L Potassium (3.4-5.1) mmol/L Chloride (98-107) mmol/L Carbon Dioxide (22-32) mmol/L BUN (7-17) mg/dL Creatinine (0.52-1.04) mg/dL Estimated GFR (>60) mL/min BUN/Creatinine Ratio (6-22) Glucose (80-110) mg/dL Calcium (8.4-10.2) mg/dL Magnesium (1.6-2.3) mg/dL Total Bilirubin (0.2-1.3) mg/dL AST (14-36) IU/L ALT (<35) IU/L Alkaline Phosphatase (38-126) U/L Total Creatine Kinase 55 (30-135) U/L CK-MB (CK-2) TNP CK-MB (CK-2) Rel Index TNP Troponin I < 0.012 (0.01-0.034) ng/mL Total Protein (6.3-8.2) g/dL Albumin (3.5-5.0) g/dL Globulin (1.7-4.1) g/dL Albumin/Globulin Ratio (1.0-2.8) Lipase (23-300) U/L Urine RBC 1-5/hpf (0-5/HPF) Urine WBC 5-10/hpf H (0-5/HPF) Ur Squamous Epith Cells 1-5 /hpf (0-5/HPF) Urine Bacteria Many (>30) H (None) SARS-CoV-2 (PCR) Negative (Negative) Influenza A (RT-PCR) Flu a negative (NEGATIVE) Influenza B (RT-PCR) Flu b negative (NEGATIVE) RSV (PCR) Negative (Negative) Urine Dip Bedside Urine Glucose Negative Bedside Urine Bilirubin - Negative Bedside Urine Ketone - Negative Urine Specific [place] 1.015 Bedside Urine Occult Blood +++ Bedside Urine pH 7.5 Bedside Urine Protein + 30 Bedside Urine Urobilinogen +/- 1mg Bedside Urine Nitrite - Negative Bedside Urine Leukocytes ++ 125 Esterase Imaging Data Chest x-ray: Radiologist's Impression: [place] [id number] XRay Report Signed Patient: Sivan Lee MR#: [id number] : 1950 Acct:[id number] Age/Sex: 72 / F Date of Service: 07/19/22 Loc: ED Accession Number: [id number] ?? Procedure: XR chest 1V Ordering Provider: Jose Alfredo Smallwood D.O. PROCEDURE:? XR CHEST 1V ? INDICATIONS:? chest pain ? TECHNIQUE:? One view of the chest was acquired.? ? COMPARISON:? None. ? FINDINGS:? ? Surgical changes and devices:? None.? ? Lungs and pleura:? Low lung volumes left basilar horizontal opacity.? Lungs are otherwise clear.? No pleural effusions or pneumothorax.? ? Mediastinum:? Mediastinal contours appear normal.? Heart size is normal.? ? Bones and chest wall:? No suspicious bony lesions.? Overlying soft tissues appear unremarkable.? ? IMPRESSION:? ? 1. Low lung volumes and probable left base atelectasis. ? 2. No other acute cardiopulmonary disease.? ? ? Dictated by: Anabell Garcia M.D. on 07/19/2022 at 20:08 ? ? Approved by: Anabell Garcia M.D. on 07/19/2022 at 20:09?? ECG Data Attestation: I personally reviewed and interpreted this ECG as follows: Interpretation: Sinus rhythm Ventricular rate 97 Normal axis Right bundle-branch block Normal QRS Normal QTC No ST T wave changes MDM Narrative Medical decision making narrative: Patient does have a heart score of 4. Is asymptomatic. Nonischemic changes in the EKG. Troponin negative x2. Chest x-ray is unremarkable. Had a discussion with the patient regarding further evaluation of her chest pain to include the need for further risk stratification to include a stress test. We discussed options as far as going home and having this performed as an outpatient versus being admitted to the hospital. The reason that I offer this is because the patient's is in hospice. After this discussion the patient opted to be admitted to the hospital. I discussed the case with Dr. Woods with Internal Medicine who will admit for further evaluation treatment. Discharge Plan Departure Patient Disposition: Admitted as Observation Clinical Impression: Chest pain Admit Date/Time: 07/19/22 21:31 Admit Provider: Sina Woods
[2022-07-19 19:57] LABS: INR 1.1 (0.9-1.3)
[2022-07-19 20:00] LABS: PTT Partial Thromboplastin Tim 33 SECONDS (26-36)
[2022-07-19 20:04] LABS: Alanine Aminotransferase 54 IU/L (<35); Albumin 4.1 g/dL (3.5-5.0); Alkaline Phosphatase 141 U/L (38-126); Aspartate Aminotransferase 49 IU/L (14-36); BUN Creatinine Ratio 18.8 (6-22); Bilirubin Total 0.9 mg/dL (0.2-1.3); Blood Urea Nitrogen 15 mg/dL (7-17); Calcium 9.2 mg/dL (8.4-10.2); Carbon Dioxide 24 mmol/L (22-32); Chloride 105 mmol/L (98-107); Creatine Kinase 62 U/L (30-135); Estimated Glomerular Filt Rate > 60 mL/min (>60); Globulin 4.1 g/dL (1.7-4.1); Glucose 123 mg/dL (80-110); HEMOLYSIS 15 (0-50); Lipase 221 U/L (23-300); Magnesium 1.8 mg/dL (1.6-2.3); Potassium 3.3 mmol/L (3.4-5.1); Sodium 140 mmol/L (137-145); Total Protein 8.2 g/dL (6.3-8.2)
[2022-07-19 20:15] LABS: Troponin I < 0.012 ng/mL (0.01-0.034)
[2022-07-19 20:53] LABS: Creatine Kinase 55 U/L (30-135)
[2022-07-19 20:53] LABS: Bacteria Urine Many (>30); RBC Urine 1-5/HPF (0-5/HPF); Squamous Epithelial Cell Urine 1-5 /HPF (0-5/HPF); WBC Urine 5-10/HPF (0-5/HPF)
[2022-07-19 21:06] LABS: Troponin I < 0.012 ng/mL (0.01-0.034)
[2022-07-19 21:07] LABS: Influenza A - CEPHEID Flu A NEGATIVE (NEGATIVE); Influenza B - CEPHEID Flu B NEGATIVE (NEGATIVE); Respiratory Syncytial Virus Negative (Negative)
[2022-07-19 21:20] LABS: COVID-19 CEPHEID 4-PLEX PCR Negative (Negative)
--- NOTE | 2022-07-19 21:34 | DI.NM.S_ITS ---
PROCEDURE: NM BE PERF SPECT R&S PHARM Rest and pharmacological stress myocardial perfusion SPECT with gated imaging and ejection fraction RADIOPHARMACEUTICAL: 10.0 mCi Tc-99m tetrafosmin IV at rest and 27.0 mCi Tc-99m tetrafosmin IV at peak effect of pharmacological stress. [id number] was performed. INDICATIONS: chest pain TECHNIQUE: Radiopharmaceutical was injected at peak stress test, and also at rest. SPECT images were obtained. SPECT myocardial perfusion images were displayed in short axis, horizontal long axis, and vertical long axis views. Gated images were reviewed using [employer] software. COMPARISON: None. CARDIAC STRESS: A pharmacologic stress test was performed under the supervision of an attending staff, using an infusion of lexiscan 0.4mg IV X1. Hemodynamic data: There is normal blood pressure and heart rate response to pharmacologic stress. Symptoms: The patient denied anginal chest pain. Aminophylline: none EKG: No diagnostic changes of ischemia; rare PVCs. FINDINGS: Raw data: There is good myocardial uptake of radiotracer. No significant motion artifacts. Atap-aw-zqkto ratio is 0.27 (normal is less than 0.38 for tetrafosmin tracer). Left ventricle function: Gated images demonstrate normal left ventricular wall thickening. No segmental wall motion abnormalities. No transient ischemic dilation; TID is 0.83 (normal less than 1.3). Left ventricle resting end diastolic volume is 58mL. Left ventricle stress ejection fraction is 92%; normal range is above 45%. Myocardial perfusion: There is normal distribution of activity in the right and left ventricular myocardium. No fixed or reversible perfusion defects. IMPRESSION: Low risk, normal pharmaceutical nuclear stress 1) No perfusion evidence of ischemia or infarction. 2) Normal left ventricular size, wall motion, and systolic function (EF post stress 92%). 3) No ST changes with lexiscan. 4) No angina during the study. 5) No prior nuclear stress test available for comparison. Dictated by: Pacheco Tomlinson MD on 07/21/2022 at 13:11 Approved by: Pacheco Tomlinson MD on 07/21/2022 at 13:15
[2022-07-19] MEDS: ASPIRIN EC 81 MG TABLET PO (23:01)
[2022-07-19] MEDS: ATORVASTATIN 20 MG TABLET PO (23:01)
[2022-07-20] VITALS (8 sets, daily range): BP systolic 136–156; BP diastolic 68–86; PULSE 85–94; RESP 16–17; TEMP 36.2–36.8; O2SAT 95–97
--- NOTE | 2022-07-20 02:16 | PM.HP.1 ---
History of Present Illness History of Present Illness Date Patient Seen: 07/20/22 Time Patient Seen: 01:00 Chief complaint: L chest pain Narrative: Ms Lee is a 72W with PMH HTN, HL, CVA who presents to the hospital with chest pain. She had chest pain that occurred when getting ready for bed. She had mild shortness of breath. Pain radiated along the upper left arm. Her pain was relieved with nitro when EMS arrived. She has never had symptoms like this. She has never had a stress test. In the ED workup was done, vitals notable for afebrile, heart rate in the 90s, blood pressure 170s/80s. Labs notable for WBC 10.3, plts 220, hgb 12.5. Creatinine 0.80. AST/ALT 49/54. Troponin negative x2. UA with 5-10 WBCs. Urine culture pending. COVID, flu, and rsv negative. Chest xray shows low lung volumes. EKG showed no acute ischemia. She was given aspirin and admitted for further treatment. Family history: she denies family history of heart attack in mother/father Social history: no EtOH, former smoker Patient History Medical History Dyslipidemia Hypertension Surgical History Hx of cholecystectomy Family & Social History Social History: household members spouse Prior Living Arrangements House Safety & Behavioral: Feels Safe in Current Yes Environment Been Physically Hurt or No Threatened By a Person Tobacco & Substance use: Smoking Status Former smoker alcohol intake never alcohol intake frequency other Substance Use Type does not use Meds Home Medications and Allergies Home Medications Medication Instructions Recorded Confirmed Type cholecalciferol (vitamin D3) 50 2,000 iu PO QDAY ##0 06/14/17 07/19/22 History mcg (2,000 unit) capsule (Vitamin D3) multivitamin (Multiple Vitamins 1 tab PO QDAY ##0 06/14/17 07/19/22 History tablet) amlodipine 2.5 mg tablet 2.5 mg PO BEDTIME 11/30/18 07/19/22 History losartan 100 mg tablet 100 mg PO BEDTIME 07/19/22 07/19/22 History metoprolol succinate 25 mg 25 mg PO BEDTIME 07/19/22 07/19/22 History tablet,extended release 24 hr Allergies Allergy/AdvReac Type Severity Reaction Status Date / Time cat dander Allergy Unknown Verified 07/19/22 19:43 Review of Systems Review of Systems Narrative: 14 systems reviewed and negative aside from what is noted in HPI Exam Vital Signs (past 8 hours): - 07/19/22 19:38 07/19/22 19:37 07/19/22 19:37 Temperature 98.9 F Pulse Rate 95 H 104 H Respiratory Rate 14 Blood Pressure 177/81 H 177/81 H Pulse Oximetry 95 94 Oxygen Delivery Method Room Air 07/19/22 20:00 07/19/22 20:01 07/19/22 20:01 Temperature Pulse Rate 95 H 95 H Respiratory Rate Blood Pressure 181/79 H Pulse Oximetry 97 96 Oxygen Delivery Method 07/19/22 20:25 07/19/22 20:25 07/19/22 20:30 Temperature Pulse Rate 103 H Respiratory Rate 25 H Blood Pressure 164/82 H 140/65 Pulse Oximetry 98 Oxygen Delivery Method 07/19/22 20:30 07/19/22 20:45 07/19/22 20:45 Temperature Pulse Rate 97 H 97 H Respiratory Rate 23 Blood Pressure 140/65 Pulse Oximetry 97 97 Oxygen Delivery Method 07/19/22 21:00 07/19/22 21:00 07/19/22 21:15 Temperature Pulse Rate 97 H Respiratory Rate Blood Pressure 138/64 148/68 H Pulse Oximetry 96 Oxygen Delivery Method 07/19/22 21:15 07/19/22 21:30 07/19/22 21:30 Temperature Pulse Rate 99 H 95 H Respiratory Rate 23 24 Blood Pressure 139/65 Pulse Oximetry 96 96 Oxygen Delivery Method 07/19/22 21:45 07/19/22 21:45 07/19/22 22:16 Temperature 98.4 F Pulse Rate 94 H 96 H Respiratory Rate 17 Blood Pressure 133/62 140/68 Pulse Oximetry 96 93 Oxygen Delivery Method 07/19/22 21:38 07/20/22 00:00 Temperature 97.8 F Pulse Rate 87 Respiratory Rate 16 Blood Pressure 137/68 Pulse Oximetry 95 Oxygen Delivery Method Room Air Oxygen Delivery Method Room Air Narrative Exam Narrative: GEN: no acute distress HEENT: moist mucous membranes, PERRL NECK: trachea midline, no jvd PULM: clear bilaterally, no wheezes, rhonchi, rales CV: regular rate and rhythm, no murmurs ABD: soft, nontender, nondistended, no organomegaly EXT: warm and well perfused with no edema NEURO: awake, alert, oriented, no focal deficits Objective Labs 07/19/22 19:30 07/19/22 19:30 Labs: Laboratory Results - last 24 hr 07/19/22 07/19/22 07/19/22 19:30 19:30 19:30 WBC 10.3 RBC 4.62 Hgb 12.5 Hct 36.4 MCV 78.9 L MCH 27.0 MCHC 34.2 RDW 14.0 Plt Count 220 Neut % (Auto) 71.9 Lymph % (Auto) 18.6 L [place] % (Auto) 7.2 Eos % (Auto) 1.9 L Baso % (Auto) 0.4 Neut # (Auto) 7400 H Lymph # (Auto) 1900 [place] # (Auto) 700 Eos # (Auto) 200 Baso # (Auto) 0 PT 13.0 H INR 1.1 APTT 33 Sodium 140 Potassium 3.3 L Chloride 105 Carbon Dioxide 24 BUN 15 Creatinine 0.80 Estimated GFR > 60 BUN/Creatinine Ratio 18.8 Glucose 123 H Calcium 9.2 Magnesium 1.8 Total Bilirubin 0.9 AST 49 H ALT 54 H Alkaline Phosphatase 141 H Total Creatine Kinase 62 CK-MB (CK-2) TNP CK-MB (CK-2) Rel Index TNP Troponin I < 0.012 Total Protein 8.2 Albumin 4.1 Globulin 4.1 Albumin/Globulin Ratio 1.0 Lipase 221 Urine RBC Urine WBC Ur Squamous Epith Cells Urine Bacteria SARS-CoV-2 (PCR) Influenza A (RT-PCR) Influenza B (RT-PCR) RSV (PCR) 07/19/22 07/19/22 07/19/22 20:20 20:20 20:36 WBC RBC Hgb Hct MCV MCH MCHC RDW Plt Count Neut % (Auto) Lymph % (Auto) [place] % (Auto) Eos % (Auto) Baso % (Auto) Neut # (Auto) Lymph # (Auto) [place] # (Auto) Eos # (Auto) Baso # (Auto) PT INR APTT Sodium Potassium Chloride Carbon Dioxide BUN Creatinine Estimated GFR BUN/Creatinine Ratio Glucose Calcium Magnesium Total Bilirubin AST ALT Alkaline Phosphatase Total Creatine Kinase 55 CK-MB (CK-2) TNP CK-MB (CK-2) Rel Index TNP Troponin I < 0.012 Total Protein Albumin Globulin Albumin/Globulin Ratio Lipase Urine RBC 1-5/hpf Urine WBC 5-10/hpf H Ur Squamous Epith Cells 1-5 /hpf Urine Bacteria Many (>30) H SARS-CoV-2 (PCR) Negative Influenza A (RT-PCR) Flu a negative Influenza B (RT-PCR) Flu b negative RSV (PCR) Negative Assessment & Plan Assessment & Plan narrative: 1. Chest pain -EKG with no acute ischemia -troponin negative x2 -continue aspirin, statin -HEART score of 4 -plan for nuclear stress test given mobility issues 2. History of stroke -continue asa, statin 3. Hypertension -continue amlodipine, losartan -hold metoprolol for now 4. Transaminitis -mild, follow up with PCP 5. Pyuria -patient asymptomatic, hold off on antibiotics for now -follow up urine culture I have reviewed all available labs, and reviewed the chest xray and EKG. I have discussed plan of care with the patient and ED physician. CODE: Full Proxy: Zechariah Lee, Time Spent With Patient Critical Care time: I spent a total of [] minutes of critical care time on this patient's care today; this time is exclusive of procedural time. Quality VTE Deep Vein Thrombosis/Pulmonary Embolism Present on Admission: No MIPS - Meds 'Current medications' to include all prescriptions, [id number] products, herbals, cannabis/cannabidiol products, and vitamin/mineral/dietary (nutritional) supplements. I have utilized all available resources to obtain, update, or review the patient?s current medications. [If Yes, STOP here]: Yes
[2022-07-20 04:43] LABS: Add Manual Diff / Slide Review NO; Basophils Absolute Auto 100 /uL (0-100); Basophils Percent Auto 0.6 % (0-2); Eosinophils Absolute Auto 200 /uL (0-450); Eosinophils Percent Auto 2.6 % (2-4); Hematocrit 33.4 % (36-46); Hemoglobin 11.5 g/dL (12.0-16.0); Lymphocytes Absolute Auto 1600 /uL (1100-4500); Lymphocytes Percent Auto 20.4 % (25-40); Mean Corpuscular HGB Conc 34.5 % (30-36); Mean Corpuscular Hemoglobin 27.2 PG (26-34); Mean Corpuscular Volume 78.7 fL (80-100); Monocytes Absolute Auto 700 /uL (0-900); Neutrophils Absolute Auto 5200 /uL (1500-7000); Neutrophils Percent Auto 67.4 % (50-75); Platelet Count 212 X10^3/uL (150-400); Red Blood Cell Count 4.24 X10^6/uL (4.0-5.2); Red Cell Distribution Width 14.2 % (11.6-14.8); White Blood Cell Count 7.7 X10^3/uL (4.5-11.0)
[2022-07-20 04:59] LABS: Troponin I < 0.012 ng/mL (0.01-0.034)
[2022-07-20 05:02] LABS: BUN Creatinine Ratio 16.7 (6-22); Blood Urea Nitrogen 12 mg/dL (7-17); Calcium 8.7 mg/dL (8.4-10.2); Carbon Dioxide 24 mmol/L (22-32); Chloride 109 mmol/L (98-107); Estimated Glomerular Filt Rate > 60 mL/min (>60); Glucose 99 mg/dL (80-110); HEMOLYSIS 18 (0-50); Potassium 3.5 mmol/L (3.4-5.1); Sodium 140 mmol/L (137-145)
--- NOTE | 2022-07-20 07:47 | P.PN_ITS ---
Subjective Subjective Date Patient Seen: 07/20/22 Interval history: Patient feels well. No ongoing CP. Urine culture growing staph aurues. She notes increased urinary frequency the past couple of days. Blood cultures drawn. Exam Vital Signs (past 8 hours): - 07/20/22 00:00 07/20/22 04:00 Temperature 97.8 F 98.3 F Pulse Rate 87 91 H Respiratory Rate 16 16 Blood Pressure 137/68 140/80 Pulse Oximetry 95 97 Oxygen Delivery Method Room Air Narrative Exam Narrative: GEN: no acute distress HEENT: moist mucous membranes, PERRL NECK: trachea midline, no jvd PULM: clear bilaterally, no wheezes, rhonchi, rales CV: regular rate and rhythm, no murmurs ABD: soft, nontender, nondistended, no organomegaly EXT: warm and well perfused with no edema NEURO: awake, alert, oriented, no focal deficits Objective Labs 07/20/22 04:27 07/20/22 04:27 Labs: Laboratory Results - last 24 hr 07/19/22 07/19/22 07/19/22 19:30 19:30 19:30 WBC 10.3 RBC 4.62 Hgb 12.5 Hct 36.4 MCV 78.9 L MCH 27.0 MCHC 34.2 RDW 14.0 Plt Count 220 Neut % (Auto) 71.9 Lymph % (Auto) 18.6 L [place] % (Auto) 7.2 Eos % (Auto) 1.9 L Baso % (Auto) 0.4 Neut # (Auto) 7400 H Lymph # (Auto) 1900 [place] # (Auto) 700 Eos # (Auto) 200 Baso # (Auto) 0 PT 13.0 H INR 1.1 APTT 33 Sodium 140 Potassium 3.3 L Chloride 105 Carbon Dioxide 24 BUN 15 Creatinine 0.80 Estimated GFR > 60 BUN/Creatinine Ratio 18.8 Glucose 123 H Calcium 9.2 Magnesium 1.8 Total Bilirubin 0.9 AST 49 H ALT 54 H Alkaline Phosphatase 141 H Total Creatine Kinase 62 CK-MB (CK-2) TNP CK-MB (CK-2) Rel Index TNP Troponin I < 0.012 Total Protein 8.2 Albumin 4.1 Globulin 4.1 Albumin/Globulin Ratio 1.0 Lipase 221 Urine RBC Urine WBC Ur Squamous Epith Cells Urine Bacteria SARS-CoV-2 (PCR) Influenza A (RT-PCR) Influenza B (RT-PCR) RSV (PCR) 07/19/22 07/19/22 07/19/22 20:20 20:20 20:36 WBC RBC Hgb Hct MCV MCH MCHC RDW Plt Count Neut % (Auto) Lymph % (Auto) [place] % (Auto) Eos % (Auto) Baso % (Auto) Neut # (Auto) Lymph # (Auto) [place] # (Auto) Eos # (Auto) Baso # (Auto) PT INR APTT Sodium Potassium Chloride Carbon Dioxide BUN Creatinine Estimated GFR BUN/Creatinine Ratio Glucose Calcium Magnesium Total Bilirubin AST ALT Alkaline Phosphatase Total Creatine Kinase 55 CK-MB (CK-2) TNP CK-MB (CK-2) Rel Index TNP Troponin I < 0.012 Total Protein Albumin Globulin Albumin/Globulin Ratio Lipase Urine RBC 1-5/hpf Urine WBC 5-10/hpf H Ur Squamous Epith Cells 1-5 /hpf Urine Bacteria Many (>30) H SARS-CoV-2 (PCR) Negative Influenza A (RT-PCR) Flu a negative Influenza B (RT-PCR) Flu b negative RSV (PCR) Negative 07/20/22 07/20/22 07/20/22 04:27 04:27 04:27 WBC 7.7 RBC 4.24 Hgb 11.5 L Hct 33.4 L MCV 78.7 L MCH 27.2 MCHC 34.5 RDW 14.2 Plt Count 212 Neut % (Auto) 67.4 Lymph % (Auto) 20.4 L [place] % (Auto) 9.0 Eos % (Auto) 2.6 Baso % (Auto) 0.6 Neut # (Auto) 5200 Lymph # (Auto) 1600 [place] # (Auto) 700 Eos # (Auto) 200 Baso # (Auto) 100 PT INR APTT Sodium 140 Potassium 3.5 Chloride 109 H Carbon Dioxide 24 BUN 12 Creatinine 0.72 Estimated GFR > 60 BUN/Creatinine Ratio 16.7 Glucose 99 Calcium 8.7 Magnesium Total Bilirubin AST ALT Alkaline Phosphatase Total Creatine Kinase CK-MB (CK-2) CK-MB (CK-2) Rel Index Troponin I < 0.012 Total Protein Albumin Globulin Albumin/Globulin Ratio Lipase Urine RBC Urine WBC Ur Squamous Epith Cells Urine Bacteria SARS-CoV-2 (PCR) Influenza A (RT-PCR) Influenza B (RT-PCR) RSV (PCR) [facility] Medical History Dyslipidemia Hypertension Surgical History Hx of cholecystectomy Social History household members: spouse Smoking Status: Former smoker alcohol intake: never Assessment & Plan Assessment & Plan narrative: 1. Chest pain -EKG with no acute ischemia -troponin negative x2 -continue aspirin, statin -HEART score of 4 -plan for nuclear stress test given mobility issues on 07/21 -echo shows EF 60-65% with no focal WMA's, echogenicity in RA which was present in prior echo in 2018, echo overall unchanged from prior 2. History of stroke -continue asa, statin 3. Hypertension -continue amlodipine, losartan -hold metoprolol for now 4. Transaminitis -mild, follow up with PCP 5. UTI -patient notes increased urinary frequency recently -UA with pyuria and urine cutlure growing staph aureus -blood cultures ordered and start linezolid IV for now I have reviewed all available labs, and reviewed the chest xray and EKG. I have discussed plan of care with the patient and ED physician. CODE: Full Proxy: Zechariah Lee, Dispo: Pending nuc stress test on 07/21. Then likely home. Time Spent With Patient Critical Care time: I spent a total of [] minutes of critical care time on this patient's care today; this time is exclusive of procedural time. Quality VTE Deep Vein Thrombosis/Pulmonary Embolism Present on Admission: No
[2022-07-20] MEDS: ENOXAPARIN 40 MG/0.4 ML SYRINGE SUBCUT (08:07)
[2022-07-20] MEDS: ASPIRIN EC 81 MG TABLET PO (08:07)
[2022-07-20] MEDS: POTASSIUM CHLORIDE 20 MEQ TAB 40 MEQ PO (08:07)
[2022-07-20] MEDS: MAGNESIUM SULFATE 2 GM/50 ML PIGGYBACK IV (08:07)
--- NOTE | 2022-07-20 08:19 | DI.ECHO.S_ITS ---
[facility] +---------+ : : [address] : : : : [id number] : : : : Phone: [phone]+ Echocardiogram Report + + :Name: LAUREN NUÑEZ Study Date: 07/20/2022 Height: 60 in : :[facility] ReadingLocation: Weight: 148 lb : : Gender: Female BSA: 1.6 m2 : :: 1950 Age: 72 yrs BP: 140/80 mmHg: :Reason For Study: CHEST PAIN : :Ordering Physician: LANCE, : :TOMASZ Caicedo Performed By: Julia Martínez : :Referring: TOMASZ LUCAS : + + Interpretation Summary 1) Normal left ventricular thickness, size, wall motion, and systolic function (EF 60-65%). 2) Normal right ventricular size and function. 3) A prominent echogenicity is noted in the right atrium on apical windows, which is probably eustachian valve, similar in appearance on the echo done 06/15/2017. Correlate clinically. 4) No significant valvular abnormalities. 5) Compared to the Echo done 06/15/2017, no significant change. Procedure: A two-dimensional transthoracic echocardiogram with color flow and Doppler was performed. The study quality was technically adequate. Comparison is made with the echocardiogram of 06/15/2017. The patient was in sinus rhythm with heart rates between 82-90 bpm during the exam. Left Ventricle: The left ventricle is normal in size and wall thickness. The ejection fraction is estimated to be 60-65%. Left ventricular systolic function appears normal without focal wall motion abnormalities. Diastolic parameters suggest a relaxation abnormality of the left ventricle, consistent with probable normal filling pressures. Right Ventricle: The right ventricle is normal in size and function. Atria: The left atrial size is normal. Right atrial size is normal. A prominent echogenicitiy is noted in the right atrium on apical windows, which is probably eustachian valve, similar in appearance on the echo done 06/15/2017. There is no Doppler evidence for an interatrial shunt. Mitral Valve: The mitral valve is normal in structure and function. There is trace mitral regurgitation. Aortic Valve: The aortic valve is trileaflet. The aortic valve opens well. There is no aortic valve stenosis. No aortic regurgitation is present. Tricuspid Valve: The tricuspid valve is normal in structure and function. There is mild tricuspid regurgitation. The right ventricular systolic pressure is estimated to be at least 37 mmHg based on an estimated right atrial pressure of 3 mm Hg. Pulmonic Valve: The pulmonic valve leaflets are thin and pliable; valve motion is normal. There is mild pulmonic regurgitation. Great Vessels: The aortic root is normal size. The dimensions of the ascending aorta are normal. The IVC is of normal diameter and collapses greater than 50% with a sniff. This suggests a low right atrial pressure of 3 mm Hg. Pericardium/ Pleura There is no pericardial effusion. There is no pleural effusion. MMode/2D Measurements & Calculations LVIDd: 4.3 cm LVOT diam: 2.0 cm LVIDs: 2.7 cm Ao root diam: 3.3 cm FS: 37.5 % asc Aorta Diam: 2.9 cm IVSd: 0.77 cm Ao Arch Diam (Prox Trans): 2.8 cm LVPWd: 1.0 cm LV lu. diameter/BSA (cm/m^2): 2.6 LV sys. diameter/BSA (cm/m^2): 1.7 LA A2 area: 18.3 cm2 RA long axis: 4.5 cm LA A4 area: 14.8 cm2 RA area: 11.0 cm2 LA length (vol): 5.0 cm RA vol: 22.7 ml LA vol: 46.2 ml RA : 13.8 ml/m2 LA vol index: 28.1 ml/m2 IVC diam: 0.83 cm RVD1 (basal): 2.7 cm RVD2 (mid): 2.1 cm TAPSE: 2.0 cm Doppler Measurements & Calculations Ao V2 max: 136.8 cm/sec LVOT Max Kevin: 108.7 cm/sec Ao V2 mean: 92.0 cm/sec LV V1 max P.7 mmHg Ao max P.5 mmHg LV V1 VTI: 20.7 cm Ao mean P.8 mmHg MILLER(I,D): 2.4 cm2 Ao V2 VTI: 27.3 cm MILLER(V,D): 2.5 cm2 sev ratio: 0.76 MILLER indexed to BSA (cm^2/m^2): 1.4 MV E max kevin: 66.8 cm/sec TR max kevin: 290.3 cm/sec MV A max kevin: 97.5 cm/sec TR max P.7 mmHg MV E/A: 0.68 PA V2 max: 80.6 cm/sec Med Peak E' Kevin: 5.5 cm/sec PA V2 mean: 57.5 cm/sec E/E' med: 12.1 PA mean P.5 mmHg Lat Peak E' Kevin: 6.7 cm/sec PA pr(Accel): 43.0 mmHg E/E' lat: 9.9 E/e' average: 11.0 MV dec time: 0.24 sec SV(LVOT): 64.9 ml Reading Physician:09:38 AM
[2022-07-20] MEDS: LINEZOLID 600 MG/300 ML IV.SOLN IV ×2 (12:08→23:23)
--- NOTE | 2022-07-20 14:25 | CM.DANOTE ---
Initial DCP Assessment Note Pt is a 72 yo female, resident of [facility] , presents to the ED w/complaints of chest pain , admitted for chest pain r/o w/further work up PCP: Zechariah Andujar Payer: Healthcare Management/[facility] Reviewed chart, pt scheduled for a nuc stress test 07.21.22. Depending on results, anticipate dc home after w/close outpatient f/u. Supportive family to assist as needed. Patient ambulating in room No barriers identified at this time to patient's safe discharge home w/family to assist; close outpatient f/u recommended. [facility] Discharge Planning/Care Management CM Discharge Assessment Start: 07/20/22 13:33 Freq: Status: Active Protocol: Document 07/20/22 13:33 ASHLEY (Rec: 07/20/22 14:25 ASHLEY [id number]) Discharge Planning Assessment Assigned Publicity Manager [facility] DPOA/Assigned Designee Name Zechariah Lee, spouse Contact Information [phone] Advance Directives? Yes Advance Directives on File No: full code History Provided By Patient,Medical Record Prior Living Arrangements House Household Members spouse Type of transporation used prior to Drives own vehicle admit Independent with ADL's Yes Is patient alert and oriented? Yes Barriers to Discharge No Comment Anticipate home after nuc stress test on 07/21, spouse to assist as needed Discharge Plan Home Transportation Arrangement Spouse Referrals Initiated None needed
[2022-07-20] MEDS: LOSARTAN 50 MG TABLET 100 MG PO (20:51)
[2022-07-20] MEDS: ATORVASTATIN 20 MG TABLET PO (20:51)
[2022-07-20] MEDS: AMLODIPINE 5 MG TABLET 2.5 MG PO (20:52)
[2022-07-20] MEDS: SODIUM CHLORIDE 0.9% FLUSH 10 ML IV ×2 (20:52→23:23)
[2022-07-21] VITALS: BP 137/81; PULSE 89; RESP 16; TEMP 35.8; O2SAT 96
[2022-07-21 04:37] VITALS: BP 124/79; PULSE 89; RESP 16; TEMP 35.9; O2SAT 95
[2022-07-21 04:46] LABS: Add Manual Diff / Slide Review NO; Basophils Absolute Auto 0 /uL (0-100); Basophils Percent Auto 0.7 % (0-2); Eosinophils Absolute Auto 400 /uL (0-450); Eosinophils Percent Auto 6.2 % (2-4); Hematocrit 34.6 % (36-46); Hemoglobin 11.8 g/dL (12.0-16.0); Lymphocytes Absolute Auto 1600 /uL (1100-4500); Lymphocytes Percent Auto 24.8 % (25-40); Mean Corpuscular Hemoglobin 26.7 PG (26-34); Mean Corpuscular Volume 78.7 fL (80-100); Monocytes Absolute Auto 500 /uL (0-900); Monocytes Percent Auto 7.7 % (3-14); Neutrophils Absolute Auto 3900 /uL (1500-7000); Neutrophils Percent Auto 60.6 % (50-75); Platelet Count 256 X10^3/uL (150-400); Red Cell Distribution Width 14.1 % (11.6-14.8); White Blood Cell Count 6.4 X10^3/uL (4.5-11.0)
[2022-07-21 05:17] LABS: BUN Creatinine Ratio 15.4 (6-22); Blood Urea Nitrogen 12 mg/dL (7-17); Calcium 8.7 mg/dL (8.4-10.2); Carbon Dioxide 23 mmol/L (22-32); Chloride 106 mmol/L (98-107); Estimated Glomerular Filt Rate > 60 mL/min (>60); Glucose 99 mg/dL (80-110); HEMOLYSIS < 15 (0-50); Potassium 3.8 mmol/L (3.4-5.1); Sodium 138 mmol/L (137-145)
[2022-07-21 05:18] LABS: Magnesium 2.1 mg/dL (1.6-2.3)
[2022-07-21 07:00] VITALS: O2SAT 96
[2022-07-21] MEDS: ASPIRIN EC 81 MG TABLET PO (09:54)
[2022-07-21] MEDS: ENOXAPARIN 40 MG/0.4 ML SYRINGE SUBCUT (09:55)
[2022-07-21] MEDS: SODIUM CHLORIDE 0.9% FLUSH 10 ML IV (09:56)
[2022-07-21 10:20] VITALS: BP 145/87; PULSE 84; RESP 18; TEMP 36.2; O2SAT 96
[2022-07-21] MEDS: LINEZOLID 600 MG/300 ML IV.SOLN IV (13:00)
--- NOTE | 2022-07-21 14:14 | PM.DS.1 ---
History of Present Illness History of Present Illness Date Patient Seen: 07/21/22 Time Patient Seen: 01:00 Chief complaint: L chest pain Narrative: Ms Lee is a 72W with PMH HTN, HL, CVA who presents to the hospital with chest pain. She had chest pain that occurred when getting ready for bed. She had mild shortness of breath. Pain radiated along the upper left arm. Her pain was relieved with nitro when EMS arrived. She has never had symptoms like this. She has never had a stress test. In the ED workup was done, vitals notable for afebrile, heart rate in the 90s, blood pressure 170s/80s. Labs notable for WBC 10.3, plts 220, hgb 12.5. Creatinine 0.80. AST/ALT 49/54. Troponin negative x2. UA with 5-10 WBCs. Urine culture pending. COVID, flu, and rsv negative. Chest xray shows low lung volumes. EKG showed no acute ischemia. She was given aspirin and admitted for further treatment. Family history: she denies family history of heart attack in mother/father Social history: no EtOH, former smoker Discharge Providers Provider Date of admission: 07/19/22 21:31 Discharge Date: 07/21/22 Primary care physician: Zechariah Andujar PA-C Discharge provider: Rodney Cotto DO Summary Hospital Course Discharge Diagnosis: 1. Chest pain -EKG with no acute ischemia -troponin negative x2 -continue aspirin, statin -HEART score of 4 -lexiscan stress test was normal -echo shows EF 60-65% with no focal WMA's, echogenicity in RA which was present in prior echo in 2018, echo overall unchanged from prior 2. History of stroke -continue asa, statin 3. Hypertension -continue amlodipine, losartan -hold metoprolol for now, restarted on discharge 4. Transaminitis -mild, follow up with PCP 5. UTI -patient notes increased urinary frequency recently -UA with pyuria and urine cutlure growing MSSA -blood cultures negative at 24 hours, echo negative for endocarditis -received linezolid IV x3 days and will continue 1 more week of po doxy at home Hospital Course: See problem list above Time Spent with Patient Time spent: Greater than 30 minutes Exam Vital Signs (past 8 hours): - 07/21/22 10:20 07/21/22 07:00 Temperature 97.1 F L Pulse Rate 84 Respiratory Rate 18 Blood Pressure 145/87 H Pulse Oximetry 96 96 Oxygen Delivery Method Room Air Oxygen Flow Rate 0 Oxygen Delivery Method Room Air Oxygen Flow Rate 0 Narrative Exam Narrative: GEN: no acute distress HEENT: moist mucous membranes, PERRL NECK: trachea midline, no jvd PULM: clear bilaterally, no wheezes, rhonchi, rales CV: regular rate and rhythm, no murmurs ABD: soft, nontender, nondistended, no organomegaly EXT: warm and well perfused with no edema NEURO: awake, alert, oriented, no focal deficits Objective Labs 07/21/22 04:19 07/21/22 04:19 Labs: Laboratory Results - last 24 hr 07/21/22 07/21/22 07/21/22 04:19 04:19 04:19 WBC 6.4 RBC 4.40 Hgb 11.8 L Hct 34.6 L MCV 78.7 L MCH 26.7 MCHC 34.0 RDW 14.1 Plt Count 256 Neut % (Auto) 60.6 Lymph % (Auto) 24.8 L [place] % (Auto) 7.7 Eos % (Auto) 6.2 H Baso % (Auto) 0.7 Neut # (Auto) 3900 Lymph # (Auto) 1600 [place] # (Auto) 500 Eos # (Auto) 400 Baso # (Auto) 0 Sodium 138 Potassium 3.8 Chloride 106 Carbon Dioxide 23 BUN 12 Creatinine 0.78 Estimated GFR > 60 BUN/Creatinine Ratio 15.4 Glucose 99 Calcium 8.7 Magnesium 2.1 PFSH Medical History Dyslipidemia Hypertension Surgical History Hx of cholecystectomy Social History household members: spouse Smoking Status: Former smoker alcohol intake: never Discharge Plan Discharge Plan Patient Disposition: Home Provider Discharge Comment: You were admitted for chest pain and your full workup was reassuring that the pain was not heart related. Your heart echo and stress test were normal. We noticed you had a urinary tract infection so you will need to finish 1 week of oral antibiotics for this. Discharge orders & Medications Prescriptions: New doxycycline hyclate 100 mg tablet 100 mg PO BID 7 Days Qty: 14 0RF Continued multivitamin [Multiple Vitamins] 1 EACH tablet 1 tab PO QDAY Qty: 0 cholecalciferol (vitamin D3) [Vitamin D3] 2,000 UNIT capsule 2,000 iu PO QDAY Qty: 0 losartan 100 mg tablet 100 mg PO BEDTIME metoprolol succinate 25 mg tablet extended release 24 hr 25 mg PO BEDTIME amlodipine 2.5 mg Tablet 2.5 mg PO BEDTIME Follow up/Referrals: Zechariah Andujar PA-C [Primary Care Provider] - 2 Weeks Visit Report/Discharge Packet Stand Alone Forms: Patient Portal/API, Stroke Signs & Symptoms Discharge Data Primary Care Provider: Zechariah Andujar Attending Provider: Sina Woods VTE Deep Vein Thrombosis/Pulmonary Embolism Present on Admission: No
--- NOTE | 2022-07-21 14:57 | PC.NURSE ---
Pt is A&OX3, VSS, afebrile. She continues to deny chest pain or cardiac symptoms and remains NSR on telemetry. She is taken for stess test this a.m. and completed to part procedure. She is ambulating in the room independently.She tolerates dose of IV Zyvox well. She is cleared after stress test results reviewed with MD and discussed with patient. She verbalizes understanding of discharge medications, worsening symptoms and follow up plan of care. She is escorted by w/ch with daughter and all of her belongings to private vehicle for discharge home this afternoon at approximately 1510 this afternoon.
== END 2022-07-21 15:10 | disposition home or self-care (01) ==
LOC: ED 21:31 → AC 21:32
PROVIDERS: Student in an Organized Health Care Education/Training Program; Admitting Provider Internal Medicine; Emergency Provider Emergency Medicine; PCP Physician Assistant; Visit Provider Internal Medicine
DX: R07.9 Chest pain, unspecified (principal); R06.02 Shortness of breath; I10 Essential (primary) hypertension; Z86.73 Personal history of transient ischemic attack (TIA), and cerebral infarction without residual deficits; R74.01 Elevation of levels of liver transaminase levels; N39.0 Urinary tract infection, site not specified; B95.61 Methicillin susceptible Staphylococcus aureus infection as the cause of diseases classified elsewhere; Z20.822 Contact with and (suspected) exposure to COVID-19
CPT/HCPCS: 0241U; 36415; 71045; 78452; 80048; 80053; 81003; 81015; 82550; 83690; 83735; 84484; 85025; 85610; 85730; 87040; 87077; 87086; 87147; 87186; 93005; 93010; 93017; 93306; 96361; 96365; 96366; 96372; 99284; G0378; A9502; J1650; J2020; J2785; J3475

== ENCOUNTER → 2023-09-27 12:26 | Outpatient (CLI) | payer OTHER, SELFPAY ==
[2022-07-19 21:38] VITALS: BMI 29.0
--- NOTE | 2023-09-27 12:30 | DI.RAD.S_ITS ---
PROCEDURE: XR HIP W PEL IF DONE RT 2V INDICATIONS: RT HIP PAIN TECHNIQUE: 2 views of the hip were acquired. COMPARISON: None. FINDINGS: Bones: No fractures or dislocations. No suspicious bony lesions. The visualized pelvic ring appears intact. Moderate joint space narrowing and subchondral sclerosis Soft tissues: Calcified uterine fibroid IMPRESSION: Moderate bilateral hip joint space narrowing, right greater than left Approved by: Andre Taylor M.D. on 09/27/2023 at 17:45
== END ==
PROVIDERS: PCP Physician Assistant; Referring Provider Physician Assistant; Visit Provider Physician Assistant
DX: M25.551 Pain in right hip (principal)
CPT/HCPCS: 73502

== ENCOUNTER → 2024-02-29 17:02 | Outpatient (CLI) | payer OTHER, SELFPAY ==
[2022-07-19 21:38] VITALS: BMI 29.0
--- NOTE | 2024-02-29 17:03 | DI.MG.S_ITS ---
BILATERAL DIGITAL SCREENING MAMMOGRAM 3D/2D WITH CAD: 02/29/2024 CLINICAL: Routine screening. Family history of breast cancer. Comparison is made to exams dated: 07/11/2020 mammogram, 07/20/2018 mammogram, and 06/07/2016 mammogram - [facility]. There are scattered areas of fibroglandular density (category b / 25%-50% glandular tissue). Current study was also evaluated with a Computer Aided Detection (CAD) system. No significant masses, calcifications, or other findings are seen in either breast. There has been no significant interval change. IMPRESSION: NEGATIVE There is no mammographic evidence of malignancy. A 1 year screening mammogram is recommended. Based on the Tyrer Cuzick model (a risk assessment model) the patient's lifetime risk is 3.4% and her 10 year risk is 0.0%. According to the ACR, ACS, and NCCN guidelines, an annual breast MRI exam along with mammogram is recommended if the patient's lifetime risk is 20% or greater. This exam was interpreted at Station ID: [id number]. NOTE: For mammograms, a report in lay terms will be sent to the patient. Approximately 15% of breast malignancies will not be visualized mammographically. In the management of a palpable breast mass, a negative mammogram must not discourage biopsy of a clinically suspicious lesion. Electronically Signed By: John perez/ranjit:03/01/2024 12:39:03 letter sent: Normal Exam ACR BI-RADS Category 1: Negative
== END ==
PROVIDERS: PCP Physician Assistant; Referring Provider Physician Assistant; Visit Provider Physician Assistant
DX: Z12.31 Encounter for screening mammogram for malignant neoplasm of breast (principal); Z80.3 Family history of malignant neoplasm of breast
CPT/HCPCS: 77063; 77067

== ENCOUNTER → 2025-03-03 10:06 | Outpatient (CLI) | payer OTHER, SELFPAY ==
[2022-07-19 21:38] VITALS: BMI 29.0
--- NOTE | 2025-03-03 10:12 | DI.MG.S_ITS ---
MM screening mammo BI: 03/03/2025. BI-RADS: 1 CLINICAL: 75-year old female for bilateral screening mammogram. Tyrer-Cuzick lifetime risk of 1.8%. No personal or first-degree family history of breast cancer. PRIOR EXAMS 02/29/2024, 07/11/2020, 08/03/2018, 07/20/2018, 06/07/2016. MAMMOGRAPHY TECHNIQUE: 2D and 3D (tomosynthesis) digital mammographic views obtained, with additional images as needed for full coverage. Current study was also evaluated with a Computer Aided Detection (CAD) system. DENSITY B. There are scattered areas of fibroglandular density. MAMMOGRAPHY FINDINGS Bilateral: No suspicious mass, asymmetry, microcalcification, or other abnormality seen. IMPRESSION: * No evidence of malignancy. RECOMMENDATIONS Bilateral * Annual screening mammography. OVERALL ASSESSMENT CATEGORY BI-RADS-1: Negative. The [place] [employer] recommends annual screening mammography beginning at age 40 for women with average risk of breast cancer. ELECTRONICALLY SIGNED: Tonie Martínez M.D. on 03/03/2025 at 11:39:53 PM PT Interpreting Station ID: [id number]
== END ==
PROVIDERS: PCP Physician Assistant; Referring Provider Physician Assistant; Visit Provider Physician Assistant
DX: Z12.31 Encounter for screening mammogram for malignant neoplasm of breast (principal)
CPT/HCPCS: 77063; 77067